=== PATIENT | male | born 1980 | race Caucasian/White ===

== ENCOUNTER 2023-11-24 06:58 | Emergency (ER) | payer OTHER, SELFPAY ==
[2023-11-24 07:02] VITALS: BP 130/78
--- NOTE | 2023-11-24 07:08 | ED.GENMED ---
History of Present Illness
General
Chief Complaint: Musculo-Skeletal Complaint
Time Seen by Provider: 11/24/23 07:08
History of Present Illness
History of Present Illness:
HPI: Diarrhea onset last night, then around 8hrs ago had pins and needles at R foot. No improvement w/ ice or position changes. He is also concerned about dehydration. He has had similar episodes in the past that were self-limiting.
EXAM:
GENERAL: Well appearing in no distress
HEENT: Moist oral mucosa
CARDIOVASCULAR: No murmurs, normal heart rate, regular rhythm, No chest wall tenderness
PULMONARY: No respiratory distress, breath sounds are clear and equal
ABDOMEN: Soft with no peritoneal signs, no tenderness
NEUROLOGIC: Excellent strength all extremities, no coordination deficits, very slightly decreased sensation to the right lower extremity disc but is able to feel pain bilaterally
PSYCHIATRIC: Appropriate mental status, normal insight and judgement
EXTREMITIES: Nontender, no edema, moves all extremities equally, strong DP pulses bilaterally
SKIN: No rash, no lesions
TIME OF INITIAL ENCOUNTER: 7am
NUMBER AND COMPLEXITY OF PROBLEMS ADDRESSED AT THE ENCOUNTER
� Chronic conditions affecting care: Anxiety
� Acute Exacerbation and/or Progression of Chronic Illness: This is an acute problem
� Differential Diagnosis includes: No evidence for arterial compromise based on physical examination, focal nerve impingement, sciatica, acute peroneal nerve dysfunction
AMOUNT AND/OR COMPLEXITY OF DATA TO BE REVIEWED AND ANALYZED
� I performed an independent evaluation of and my interpretation is:
EKG:
CT:
X-rays:
Laboratory Studies: CBC and chemistries unremarkable
Other:
� Review of other/old records: No old records available for review in [facility]
� Clinical information was obtained by an independent historian: Spoke to at bedside
� Prescriptions/Medications Considered but not given:
� Further testing considered but not performed:
RISK OF COMPLICATIONS AND/OR MORBIDITY OR MORTALITY OF PATIENT MANAGEMENT
� Social determinants of health affecting care: Lives at home with , is a auto body straightener
� Discussion with other providers: Discussed case with Dr. Laird EMG at around 6 weeks
� Escalation of care including admission/observation vs risk of discharge considered: May have focal nerve impingement therefore discussed with Dr. Vazquez. Resident did perform some OMT and he does report some improvement. He is
to follow-up with neurology as an outpatient. He requested to try a muscle relaxant which I feel would be a reasonable thing to try�sent prescription for Flexeril to his pharmacy.
Phy Exam
Physical Exam
Physical Exam:
See HPI
Course
Orders/Labs/Results
Orders:
Orders
11/24/23 07:30
0.9% Sodium Chloride 1000 ml [Nss] 1,000 ml IV BOLUS
11/24/23 07:54
Basic Metabolic Panel Urgent
Complete Blood Count/With Diff Urgent
Abnormal Lab Results
11/24/23
07:54
MPV 11.6 H fL
(7.4-10.4)
Absolute Neuts (auto) 7.7 H 10^3/uL
(1.4-6.5)
Absolute Lymphs (auto) 0.9 L 10^3/uL
(1.2-3.4)
Neutrophils % 82.1 H %
(42.2-75.2)
Lymphocytes % 9.2 L %
(20.5-51.1)
11/24/23 07:54
11/24/23 07:54
Vital Signs
Initial and Last Documented VS:
Initial Vital Signs
Temp Pulse Resp BP Pulse Ox
98.2 F 79 18 130/78 97
11/24/23 07:02 11/24/23 07:02 11/24/23 07:02 11/24/23 07:02 11/24/23 07:02
Last Documented Vital Signs
Temp Pulse Resp BP Pulse Ox
98.2 F 79 18 130/78 97
11/24/23 07:02 11/24/23 07:02 11/24/23 07:02 11/24/23 07:02 11/24/23 07:02
*Critical Care Note
Total Time (30-74mins, 75-104mins- exclusive of procedures): Not Applicable
ED Attending Note
-
Portions of this chart may have been created with voice recognition software.� Occasional wrong word or��sound alike� substitutions may have occurred due to the inherent limitations of voice recognition software.
Discharge Plan
Departure
Patient Disposition: Home (Routine Discharge)
Date of Disposition: 11/24/23
Time of Disposition: 08:37
Patient with high blood pressure during this ER visit?: Yes
Discharge Problem:
Paresthesia and pain of right extremity
Instructions: Paresthesia (DC)
Prescriptions:
New
cyclobenzaprine 10 mg tablet
10 mg PO TID PRN (Reason: pain) Qty: 21 0RF
Referrals:
Luis Cuevas DO [Family Provider] -
Shay Vazquez MD [Active] - Follow up in 2-3 days
Activity Restrictions/Additional Instructions:
Your CBC and chemistry tests were normal. Potassium level is normal. I spoke to Dr. Vazquez who agrees that an EMG would be reasonable at 6 weeks�I recommend you call their office for follow-up.
Interventions
Interventions:
*Risk Screen - Suicide Last Done: 11/24/23 07:02
*General Assessment Last Done: 11/24/23 07:02
*Neglect/Abuse Screening Last Done: 11/24/23 07:02
ED- Fall Risk Assessment Last Done: 11/24/23 07:37
*ED COVID-19 Vaccine History Last Done: 11/24/23 07:02
ED-Musculoskeletal Assessment Last Done: 11/24/23 07:37
Discharge Date and Time
Print Language: GEORGIAN
[2023-11-24 07:55] VITALS: BMI 31.3
[2023-11-24] MEDS: NSS 1000 IV (07:56)
[2023-11-24 08:14] LABS: % Basophils 0.5 % (0-2); % Eosinophils 1.2 % (0-6); % Immature Granulocytes 0.3 % (0-0.5); % Lymphocytes 9.2 % (20.5-51.1); % Monocytes 6.7 % (1.7-9.3); % Neutrophils 82.1 % (42.2-75.2); Absolute Basophils 0.1 10^3/uL (0-0.2); Absolute Eosinophils 0.1 10^3/uL (0-0.7); Absolute Lymphocytes 0.9 10^3/uL (1.2-3.4); Absolute Monocytes 0.6 10^3/uL (0.1-0.6); Absolute Neutrophils 7.7 10^3/uL (1.4-6.5); Hematocrit 43.6 % (39.0-52.0); Hemoglobin 15.6 g/dL (13.0-18.0); Mean Corp Hgb Conc. 35.8 g/dL (33.0-37.0); Mean Corpuscular Hgb 30.6 pg (27.0-31.0); Mean Corpuscular Volume 85.5 fL (80.0-94.0); Mean Platelet Volume 11.6 fL (7.4-10.4); Nucleated Red Blood Cells % 0 % (-); Platelet Count 204 10^3/uL (130-400); Red Cell Dist. Width 12.4 % (11.5-14.5); White Blood Cell Count 9.3 10^3/uL (4.8-10.8)
[2023-11-24 08:31] LABS: Blood Urea Nitrogen 19 mg/dl (9-20); Calcium 9.6 mg/dl (8.4-10.2); Carbon Dioxide 26 mmol/L (22-30); Chloride 104 mmol/L (98-107); Estimated Creatinine Clearance 100 ml/min; Glucose 96 mg/dl (70-99); Potassium 4.2 mmol/L (3.5-5.1); Sodium 138 mmol/L (135-145); eGFR > 60.00
[2023-11-24 08:46] VITALS: BP 95/59
== END 2023-11-24 08:48 | disposition home or self-care (01) ==
LOC: EMR 06:58
PROVIDERS: EMERGENCY PHYSICIAN Emergency Medicine; FAMILY PHYSICIAN Family Medicine
DX: R20.2 Paresthesia of skin (principal)
CPT/HCPCS: 99283; 96360; 80048; 85025